=== PATIENT | female | born 1990 | race Caucasian/White ===

== ENCOUNTER 2016-12-27 14:14 | Emergency (ER) | payer OTHER ==
[~2016-12-27] VITALS: Ht 170.2 cm; Wt 117.5 kg
[~2016-12-27 14:14] MED LIST: ACIDOPHILUS LA1 EACH PO; AUGMENTIN 875875 MG PO; CIPRO500 MG; CIPRO500 MG PO; CIPROFLOXACIN500 M1 PO; COLACE100 MG PO; DAILY VITAMIN1 EAC5 PO; FLAGYL500 MG PO; LEVSIN0.125 MG PO; LISINOPRIL2.5 MG PO; MULTIVITAMINS1 EAC7 PO; NORCO 5-325 TA1 EACH PO; ONDANSETRON HCL4 M2 PO; PRILOSEC20 MG PO; PRILOSEC40 MG PO; PROBIOTIC1 EAC2; SYSTANE BALANCE10 ML OPHTHALMIC; VENTOLIN HFA 1818 GM INH; ZOFRAN ODT4 MG PO
[2016-12-27] MEDS ORDERED: ZESTRIL20 MG PO (14:48)
[2016-12-27] MEDS ORDERED: METFORMIN HCL500 MG PO (14:48)
[2016-12-27] MEDS ORDERED: ALLEGRA ALLERG180 MG PO (14:49)
[2016-12-27] MEDS ORDERED: CELEXA20 MG PO (14:49)
[2016-12-27] MEDS ORDERED: ALEVE220 MG PO (14:50)
[2016-12-27] MEDS ORDERED: AMOXICILLIN 50500 MG PO (14:50)
[2016-12-27 15:11] LABS: ABSOLUTE NEUTROPHILS 7.5 thou/uL (1.4-8.2); BASOPHILS 0.4 % (0.0-2.0); EOSINOPHILS 0.3 % (0.0-3.0); HEMATOCRIT 35.6 % (37.0-47.0); LYMPHOCYTES 11.8 % (24.0-44.0); MCH 29.7 pg (26.0-34.0); MCHC 33.7 g/dL (28.0-37.0); MCV 88.1 fL (80.0-100.0); MONOCYTES 6.1 % (1.0-8.0); PLATELET COUNT 192 thou/uL (150-400); POLYS 81.4 % (36.0-66.0); RBC 4.04 mil/uL (4.20-5.00); RDW 13.7 % (10.5-14.5); WBC 9.2 thou/uL (4.0-11.0)
[2016-12-27 15:11] LABS: URINE BILIRUBIN NEGATIVE (Negative); URINE BLOOD 1+ (Negative); URINE COLOR YELLOW; URINE GLUCOSE-RANDOM* NEGATIVE (Negative); URINE KETONES NEGATIVE (Negative); URINE NITRITE NEGATIVE (Negative); URINE PROTEIN (DIPSTICK) 2+ (Negative); URINE SPECIFIC GRAVITY 1.025 (1.003-1.035)
[2016-12-27 15:12] LABS: MANUAL DIFF NO
[2016-12-27 15:22] LABS: CALCIUM 8.8 mg/dL (8.5-10.1); CREATININE 0.9 mg/dL (0.6-1.0); POTASSIUM 3.5 mmol/L (3.5-5.1)
[2016-12-27 15:26] LABS: ALBUMIN 3.2 g/dL (3.4-5.0); TOTAL BILIRUBIN 0.4 mg/dL (<0.1-1.0); TOTAL PROTEIN 7.3 g/dL (6.4-8.2)
[2016-12-27 15:32] LABS: SQUAMOUS >10 Many /LPF (0-3)
[2016-12-27 15:33] LABS: CASTS None Seen /LPF (None Seen); CRYSTALS None Seen /LPF (None Seen); URINE RBC 3-10 Few /HPF (0-2); URINE WBC >25 Many /HPF (0-5); WBC CLUMPS Few (None Seen)
[2016-12-27] MEDS ORDERED: FLAGYL500 MG PO (16:56)
[2016-12-27] MEDS ORDERED: CIPRO500 MG PO (16:56)
[2016-12-27] MEDS ORDERED: TORADOL 10 MG T10 MG PO (17:44)
[2016-12-27] MEDS ORDERED: NORCO 5-325 TA1 EACH PO (17:46)
== END 2016-12-27 18:03 | disposition home or self-care (01) ==
LOC: ER 14:14
PROVIDERS: Physician Assistant
DX: K57.32 Diverticulitis of large intestine without perforation or abscess without bleeding (principal); N39.0 Urinary tract infection, site not specified; J45.909 Unspecified asthma, uncomplicated; E11.9 Type 2 diabetes mellitus without complications; E66.01 Morbid (severe) obesity due to excess calories; Z91.040 Latex allergy status; Z88.5 Allergy status to narcotic agent; Z88.1 Allergy status to other antibiotic agents; Z88.6 Allergy status to analgesic agent

== ENCOUNTER 2016-12-28 20:27 | Inpatient (IN) | payer OTHER ==
[~2016-12-28] VITALS: Ht 170.2 cm; Wt 118.1 kg
--- NOTE | ~2016-12-28 | HC ---
[facility] [place] [address] CONSULTATION Name: OLY PATHAK Room #: 307-P [facility] IN ..#: [id number] Admission: 12/28/16 Attend Phys: René Groves MD Discharge: 12/30/16 Date of : 86 Report #: [id number] THIS REPORT FOR: //name// CC: Sumit Groves REASON FOR CONSULTATION: I was asked to evaluate concerning diverticulitis, failing outpatient therapy. HISTORY OF PRESENT ILLNESS: The patient is a 26-year-old with a history diverticular disease. She had had a diverticular abscess diagnosed in 2013. She was unable to follow up for segmental resection because of . She is now about a year . She has had several episodes of diverticular pain that she treats with change in diet and going on clear liquids for a while. This happened again in first part of the week, she did not improve and was seen in the outpatient clinic and placed on Augmentin. She did not improve with this and was seen in the Emergency Room, placed on ciprofloxacin and metronidazole. Again, did not improve and came in with fever up to 103 degrees associated with sharp pain in the left lower quadrant. Imaging studies here shows evidence of diverticulitis, but no evidence of abscess. In addition, she has had dysuria. No air in her urine. The pain is mostly left sided with some radiation to her left flank. Stools have been loose. Mild anorexia and associated nausea without vomiting. No cough or sputum production. No rashes. No chest pain. ALLERGIES: LATEX, SULFA, MORPHINE, TRAMADOL. MEDICATIONS: Ciprofloxacin, metronidazole. Previously was on hydrocodone, Zofran, Toradol, metformin, Zestril, Celexa, Sandy, Aleve. PAST MEDICAL HISTORY: Asthma, C. section, obesity, diabetes, unilateral kidney. FAMILY HISTORY: Noncontributory. SOCIAL HISTORY: Nonsmoker, no significant alcohol intake. Lives with her two children. 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 REVIEW OF SYSTEMS: Noted above with no additions. PHYSICAL EXAMINATION: VITAL SIGNS: Maximum temperature is 103 degrees, now afebrile, hemodynamically stable. GENERAL: Alert and cooperative and pleasant, in no acute distress. Obese. SKIN: Unremarkable. LYMPH: Unremarkable. HEENT: Unremarkable. CHEST: Clear. HEART: Regular. [facility] [address] [place] [address] CONSULTATION Name: OLY PATHAK Emre Room #: [address] [place] [address] [place] .R.#: [id number] Admission: 12/28/16 Attend Phys: René Groves MD Discharge: 12/30/16 Date of : 86 Report #: [id number] ABDOMEN: Tender in the left lower quadrant. No guarding, no rebound. EXTREMITIES: Unremarkable. NEUROLOGIC: Nonfocal. LABORATORY STUDIES: Blood cultures negative. TSH 2.7. Hemoglobin 10.7, platelet count 175,000, WBC 7.3. Sodium 140, potassium 3.4, bicarbonate 25, creatinine 0.7. Urinalysis: Pyuria, bacteriuria. Liver function test normal. Beta hCG negative. Differential on admission, 81% segs, 11% lymphs, 6% monocytes. CT scan of the abdomen as noted above, with taken on 12/27/2016. IMPRESSION AND PLAN: A 26-year-old with recurrent diverticulitis. She has had a previous perforation. With the worsening in her condition, I would be concerned about this possibility happening again. She has had Pseudomonas identified previously. She would continue antipseudomonal coverage. It appears that she did not improve with ciprofloxacin and metronidazole, would therefore go with Zosyn. I am concerned that the urinary tract symptoms are related to the diverticular disease and associated with her bladder. No evidence of fistula. If recurrence of fever, would reimage to ensure no evidence of perforation. I will obtain abdominal x-ray now to ensure there is no evidence of free air. <ELECTRONICALLY SIGNED> By: Viet Bal MD 01/01/17 [id number] Viet Bal MD /nt
[~2016-12-28 20:27] MED LIST changes: +ALEVE220 MG PO; +ALLEGRA ALLERG180 MG PO; +AMOXICILLIN 50500 MG PO; +CELEXA20 MG PO; +METFORMIN HCL500 MG PO; +TORADOL 10 MG T10 MG PO; +ZESTRIL20 MG PO
[2016-12-28 20:28] VITALS: BP 153/97
[2016-12-28 21:33] LABS: ABSOLUTE NEUTROPHILS 8.5 thou/uL (1.4-8.2); BASOPHILS 0.3 % (0.0-2.0); EOSINOPHILS 0.1 % (0.0-3.0); HEMOGLOBIN 11.9 gm/dL (12.0-15.0); LYMPHOCYTES 13.4 % (24.0-44.0); MCH 30.1 pg (26.0-34.0); MCHC 34.1 g/dL (28.0-37.0); MCV 88.3 fL (80.0-100.0); MONOCYTES 7.7 % (1.0-8.0); PLATELET COUNT 185 thou/uL (150-400); POLYS 78.5 % (36.0-66.0); RBC 3.96 mil/uL (4.20-5.00); RDW 13.7 % (10.5-14.5); WBC 10.8 thou/uL (4.0-11.0)
[2016-12-28 21:36] LABS: MANUAL DIFF NO
[2016-12-28 21:41] LABS: CREATININE 0.8 mg/dL (0.6-1.0); POTASSIUM 3.4 mmol/L (3.5-5.1)
[2016-12-28 23:35] VITALS: BP 114/61
[2016-12-29 04:37] LABS: HEMATOCRIT 31.5 % (37.0-47.0); HEMOGLOBIN 10.7 gm/dL (12.0-15.0); MCH 30.2 pg (26.0-34.0); MCV 88.7 fL (80.0-100.0); RBC 3.55 mil/uL (4.20-5.00); RDW 13.8 % (10.5-14.5); WBC 7.3 thou/uL (4.0-11.0)
[2016-12-29 04:40] LABS: CALCIUM 8.3 mg/dL (8.5-10.1); CREATININE 0.7 mg/dL (0.6-1.0); POTASSIUM 3.4 mmol/L (3.5-5.1)
[2016-12-29 05:15] VITALS: BP 95/55
[2016-12-29 07:05] VITALS: BP 110/78
[2016-12-29 16:15] VITALS: BP 102/61
[2016-12-29 18:49] LABS: MAGNESIUM 1.8 mg/dL (1.8-2.4); POTASSIUM 3.6 mmol/L (3.5-5.1)
[2016-12-29 20:00] VITALS: BP 116/77
[2016-12-30 04:35] VITALS: BP 102/69
[2016-12-30 07:35] VITALS: BP 117/81
[2016-12-30 08:50] LABS: HEMATOCRIT 31.6 % (37.0-47.0); HEMOGLOBIN 10.6 gm/dL (12.0-15.0); MCH 30.2 pg (26.0-34.0); MCHC 33.6 g/dL (28.0-37.0); RBC 3.52 mil/uL (4.20-5.00); RDW 13.6 % (10.5-14.5); WBC 5.8 thou/uL (4.0-11.0)
[2016-12-30 09:09] LABS: CALCIUM 8.3 mg/dL (8.5-10.1); CREATININE 0.8 mg/dL (0.6-1.0); POTASSIUM 3.6 mmol/L (3.5-5.1)
[2016-12-30 14:40] VITALS: BP 123/71
== END 2016-12-30 17:12 | disposition short-term general hospital (02) | DRG 392 ==
LOC: ER 20:27 → EROBS 22:04 → 3N 22:04
PROVIDERS: Emergency Medicine; Family Medicine; Nurse Practitioner Adult Health; Nurse Practitioner Family
DX: K57.32 Diverticulitis of large intestine without perforation or abscess without bleeding (principal); Z68.41 Body mass index [BMI] 40.0-44.9, adult; Q60.0 Renal agenesis, unilateral; J45.909 Unspecified asthma, uncomplicated; E66.01 Morbid (severe) obesity due to excess calories; E87.6 Hypokalemia; E11.9 Type 2 diabetes mellitus without complications; Z88.2 Allergy status to sulfonamides; Z88.1 Allergy status to other antibiotic agents; Z88.5 Allergy status to narcotic agent; Z88.8 Allergy status to other drugs, medicaments and biological substances; Z91.040 Latex allergy status
CPT/HCPCS: 10094